=== PATIENT | female | born 1955 | race Caucasian/White ===

== ENCOUNTER 2019-02-20 10:19 | Emergency (ER) | payer OTHER ==
[~2019-02-20] VITALS: Ht 160 cm; Wt 50.0 kg
[2019-02-20 10:19] VITALS: BP 43/33; PULSE 104; TEMP 97.3
[2019-02-20 10:51] LABS: HEMOGLOBIN 16.3 g/dl (12.5-16.0); MEAN CELL VOLUME 94 fl (80.0-100.0); MEAN CORPUSCULAR HEMOGLOBIN 29 pg (27.0-31.0); MEAN CORPUSCULAR HGB CONC 31 g/dl (33.0-37.0); MEAN PLATELET VOLUME 10.7 fl (7.4-10.4); PLATELET COUNT 122 K/mm3 (130-400); RED BLOOD COUNT 5.58 M/mm3 (4.10-5.30); REDCELL DISTRIBUTION WIDTH-CV 16.5 % (11.5-14.5)
[2019-02-20 10:52] LABS: HEMATOCRIT 52.5 % (37.0-47.0)
[2019-02-20 11:01] LABS: TROPONIN-I 0.056 ng/mL (0.000-0.035)
[2019-02-20 11:27] LABS: BAND 6 % (0-10); LYMPHOCYTE 17 % (20.0-51.0); NEUTROPHILS 67 % (42.0-75.2); PLATELET ESTIMATE DECREASED (NORMAL)
[2019-02-20 11:41] LABS: ALCOHOL(ethanol),MEDICAL < 10 mg/dL
--- NOTE | 2019-02-20 12:09 | NUR ---
Initial visit; Diagnostic Imaging Manager called to Emergency Room where she ministered to An's ; Bo when he arrived. Diagnostic Imaging Manager offered comfort for Bo and prayer for An. Later per request of family, Diagnostic Imaging Manager contacted Manager [facility] from [facility].
--- NOTE | 2019-02-20 16:30 | NUR ---
[employer] student responded to a code blue to the ED. The patient's , Bo was present and reports there are no advanced directives in place. Workers and ice cream man provided support. The patient at 11:36AM. The patient's chose [facility] [id number] [facility] [place] [address]. Phone number . [employer] student collaborated the above information with the warehouse shipping supervisor.
== END 2019-02-20 19:30 | disposition expired ==
LOC: COL.ER 10:19
PROVIDERS: Emergency Medicine
DX: I46.9 Cardiac arrest, cause unspecified (principal)
CPT/HCPCS: C9113; J0171; J0282; J0330; J2354; J3475